=== PATIENT | male | born 1945 | race Caucasian/White ===

== ENCOUNTER 2017-03-21 18:46 | Emergency (ER) | payer OTHER ==
[2017-03-21 19:02] VITALS: BP 136/72; PULSE 49; RESP 16; TEMP 97.9; O2SAT 98
--- NOTE | 2017-03-21 19:23 | EDPHY ---
H & P Time Seen by Provider: 03/21/17 19:08 HPI/ROS: CHIEF COMPLAINT: right middle finger laceration HISTORY OF PRESENT ILLNESS: 71-year-old male presents emergency department with a small laceration to his right middle finger from an open can in his trash can tonight. Patient is [id number], tetanus is up-to-date. Patient denies numbness or tingling to this finger, no other complaints. Smoking Status: Never smoked Physical Exam: GEN: Awake, alert, oriented, no acute distress RESP: nl resp effort MSK: Full active range of motion against resistance of right middle finger, sensation intact to light touch, cap refill less than 2 seconds SKIN: 3 mm superficial laceration to lateral distal palmar aspect of right middle finger Constitutional: Initial Vital Signs Temperature (C) 36.6 C 03/21/17 18:57 Heart Rate 49 L 03/21/17 18:57 Respiratory Rate 16 03/21/17 18:57 Blood Pressure 136/72 H 03/21/17 18:57 O2 Sat (%) 98 03/21/17 18:57 O2 Delivery Mode Room Air Allergies/Adverse Reactions: Penicillins Allergy (Verified 03/21/17 19:02) Rash Home Medications: Medication Instructions Recorded LORazepam [Ativan (*)] 0.25 - 0.5 mg PO HS PRN 10/17/13 traZODone [traZODONE 50MG (*)] 25 mg PO HS PRN 10/17/13 traZODone [traZODONE 50MG (*)] 50 mg PO HS 10/17/13 Acetaminophen [Tylenol 325mg (*)] 325 - 650 mg PO Q6 PRN #0 tab 11/09/13 MDM/Departure - [facility] ED Course/Re-evaluation: Wound gently cleaned, tube gauze placed, laceration is not suturable. Patient is discharged with return precautions. - Depart Disposition: Home, Routine, Self-Care Clinical Impression: Laceration of right middle finger Qualifiers: Encounter type: initial encounter Damage to nail status: without damage Foreign body presence: without foreign body Qualified Code(s): S61.212A - Laceration without foreign body of right middle finger without damage to nail, initial encounter Condition: Good Instructions: Finger Laceration (ED) Additional Instructions: Keep dressing clean and dry until Gerald morning, then you may remove it. Return to the emergency department for any increased pain, redness, fevers, signs of infection. Referrals: Elvi Watson MD [Primary Care Provider] - As per Instructions
== END 2017-03-21 19:47 | disposition home or self-care (01) ==
DX: S61.212A Laceration without foreign body of right middle finger without damage to nail, initial encounter (principal); W26.8XXA Contact with other sharp object(s), not elsewhere classified, initial encounter; Y93.89 Activity, other specified